=== PATIENT | female | born 1965 | race American Indian/Alaskan Native ===

== ENCOUNTER 2021-08-05 10:48 | Emergency (ER) | payer SELFPAY ==
[2021-08-05 12:02] VITALS: BP 129/86
--- NOTE | 2021-08-05 13:39 | Emergency Department Report ---
ED General Adult HPI - General Chief complaint: Neuro Symptoms/Deficit Stated complaint: RIGHTSIDE WEAKNESS/NUMBNESS Source: patient Mode of arrival: Ambulatory Limitations: Physical Limitation - History of Present Illness Initial comments: 56-year-old female presents to the ED complaining of a headache and weakness to her right side x2 months. Patient states that she has been seen by her primary care doctor who has ordered her a CT but she did not have insurance at the time. States that this and that weakness got worsen she was unable to pick up driver item. Patient is not exhibiting any weakness at present time. States that she is just concerned with intermittent weakness and was instructed by her primary care doctor to come to the ED for further evaluation. Patient is neurologically intact. She states that headache started 2 days ago currently patient states that her headache is a 0 out of 10. Patient is alert and oriented x3 .No acute distress noted. No ill appearance noted - Related Data Previous Rx's Medication Instructions Recorded Last Taken Type HYDROcodone/APAP 10-325 [Tiro 1 each PO Q4-6H PRN #20 tablet 10/06/14 Unknown Rx 10/325] cephALEXin [Keflex] 500 mg PO Q6H #28 capsule 10/06/14 Unknown Rx Acetaminophen/Codeine [Tylenol 1 tab PO Q6H PRN 3 Days #12 tab 08/05/21 Unknown Rx /Codeine # 3 tab] Ondansetron (Nf) [Zofran TAB] 8 mg PO Q8HR PRN 3 Days #12 tablet 08/05/21 Unknown Rx Allergies Allergy/AdvReac Type Severity Reaction Status Date / Time Sulfa (Sulfonamide Allergy Hives Verified 08/05/21 12:03 Antibiotics) aspirin AdvReac Unknown Unverified 08/05/21 12:03 Penicillins AdvReac Unknown Unverified 08/05/21 12:03 ED Review of Systems ROS: Stated complaint: RIGHTSIDE WEAKNESS/NUMBNESS Other details as noted in HPI Constitutional: denies: chills, fever Eyes: denies: eye pain, eye discharge, vision change ENT: denies: ear pain, throat pain Respiratory: denies: cough, shortness of breath, wheezing Cardiovascular: denies: chest pain, palpitations Endocrine: no symptoms reported Gastrointestinal: denies: abdominal pain, nausea, diarrhea Genitourinary: denies: urgency, dysuria, discharge Musculoskeletal: denies: back pain, joint swelling, arthralgia Skin: denies: rash, lesions Neurological: headache, weakness. denies: paresthesias Psychiatric: denies: anxiety, depression Hematological/Lymphatic: denies: easy bleeding, easy bruising ED Past Medical Hx - Past Medical History Previous Medical History?: Yes - Surgical History Additional Surgical History: neck surgery to C1, C2, & C3 - Social History Smoking Status: Never Smoker Substance Use Type: None - Medications Home Medications: Home Medications Medication Instructions Recorded Confirmed Last Taken Type HYDROcodone/APAP 10-325 [Tiro 1 each PO Q4-6H PRN #20 tablet 10/06/14 Unknown Rx 10/325] cephALEXin [Keflex] 500 mg PO Q6H #28 capsule 10/06/14 Unknown Rx Acetaminophen/Codeine [Tylenol 1 tab PO Q6H PRN 3 Days #12 tab 08/05/21 Unknown Rx /Codeine # 3 tab] Ondansetron (Nf) [Zofran TAB] 8 mg PO Q8HR PRN 3 Days #12 tablet 08/05/21 Unkno wn Rx ED Physical Exam - General Limitations: Physical Limitation General appearance: alert, in no apparent distress - Head Head exam: Present: atraumatic, normocephalic - Eye Eye exam: Present: normal appearance - ENT ENT exam: Present: mucous membranes moist - Neck Neck exam: Present: normal inspection - Respiratory Respiratory exam: Present: normal lung sounds bilaterally. Absent: respiratory distress - Cardiovascular Cardiovascular Exam: Present: regular rate, normal rhythm. Absent: systolic murmur, diastolic murmur, rubs, gallop - GI/Abdominal GI/Abdominal exam: Present: soft, normal bowel sounds - Extremities Exam Extremities exam: Present: normal inspection - Expanded Upper Extremity Exam Left General: Present: normal inspection Shoulder Exam: Present: normal inspection, full ROM Upper Arm exam: Present: normal inspection, full ROM Elbow exam: Present: normal inspection, full ROM Forearm Wrist exam: Present: normal inspection, full ROM Hand Wrist exam: Present: normal inspection, full ROM Neurosensory exam: Present: radial nerve intact, ulnar nerve intact, median nerve intact - Back Exam Back exam: Present: normal inspection - Neurological Exam Neurological exam: Present: alert, oriented X3 - Psychiatric Psychiatric exam: Present: normal affect, normal mood - Skin Skin exam: Present: warm, dry, intact, normal color. Absent: rash ED Course Vital Signs 08/05/21 11:58 Temperature 98.5 F Pulse Rate 82 Respiratory 18 Rate Blood Pressure 129/86 O2 Sat by Pulse 100 Oximetry ED Medical Decision Making - Radiology Data [facility] [address] [place] [address] Cat Scan Report Signed Patient: GUNJAN MONTERO MR#: Sampson [id number] : 1965 Acct:[id number] Age/Sex: 56 / F ADM Date: 08/05/21 Loc: ED Attending Dr: Ordering Physician: LUIS FERNANDO BERNABE Date of Service: 08/05/21 Procedure(s): CT lumbar spine wo con Accession Number(s): [id number] cc: LUIS FERNANDO BERNABE CT LUMBAR SPINE WITHOUT CONTRAST INDICATION / CLINICAL INFORMATION: fall 1 month ago weakness. TECHNIQUE: Axial CT images were obtained through the lumbar spine. Sagittal and coronal reformatted images were produced. All CT scans at this location are performed using CT dose reduction for ALARA by means of automated exposure control. COMPARISON: None available. FINDINGS: Transitional vertebral anatomy is noted. There is partial sacralization of the fifth lumbar vertebrae. The location of the L5-S1 intervertebral disc is defined at axial image series CT #2, oseas ge 314/421. TRAUMA:There is no indication of fracture or traumatic subluxation. ALIGNMENT: No significant abnormality of alignment in the lumbar region. VERTEBRAE: No significant abnormality. DISC SPACES: Near-complete loss of disc height and disc vacuum phenomena are noted at the lumbosacral junction. Mild loss of disc height is present at the L5-S1 level. Disc height is fairly well maintained elsewhere. DEGENERATIVE CHANGES: SPINAL CANAL: Central spinal canal is adequate in size throughout the lumbar region. SACRUM:No significant abnormality of the visualized sacrum.. Vacuum phenomena is present in the SI joints bilaterally. PARASPINAL SOFT TISSUES: No significant abnormality. IMPRESSION: 1. No indication of fracture or traumatic subluxation. 2. Advanced degenerative changes at the lumbosacral junction where near complete loss of disc height and disc vacuum phenomena are noted. Signer Name: Rodolfo Zapien MD Signed: 08/05/2021 4:16 PM Workstation Name: [id number] Transcribed By: Dictated By: Rodolfo Zapien MD Electronically Authenticated By: Rodolfo Zapien MD Signed Date/Time: 08/05/21 1616 DD/ 1611 TD/TT: [facility] [address] [place] [address] Cat Scan Report Signed Patient: GUNJAN MONTERO MR#: Sampson [id number] : 1965 Acct:[id number] Age/Sex: 56 / F ADM Date: 08/05/21 Loc: ED Attending Dr: Ordering Physician: LUIS FERNANDO BERNABE Date of Service: 08/05/21 Procedure(s): CT head/brain wo con Accession Number(s): [id number] cc: LUIS FERNANDO BERNABE NONENHANCED CT SCAN OF THE HEAD: INDICATION / CLINICAL INFORMATION: 56 years Female; weakness. TECHNIQUE: Routine CT head without contrast. All CT scans at this location are performed using CT dose reduction for ALARA by means of automated exposure control. COMPARISON: None. FINDINGS: BRAIN / INTRACRANIAL CONTENTS: No intracerebral hemorrhage or stroke mimics. No acute hemorrhage, mass effect, midline shift, hydrocephalus, or acute, large territorial infarct. No chronic infarct or focal atrophy. Normal brain volume and ventricular/sulcal size for age. No significant white matter abnormality. CRANIOCERVICAL JUNCTION: No significant abnormality. ORBITS: No significant abnormality of visualized orbits. SINUSES / MASTOIDS: No significant abnormality of the visualized paranasal sinuses or mastoid air cells. ADDITIONAL FINDINGS: None. IMPRESSION: Normal nonenhanced CT scan of the brain Signer Name: Ramila Toth MD Signed: 08/05/2021 1:44 PM Workstation Name: [id number] Transcribed By: Dictated By: Ramila Saavedra MD Electronically Authenticated By: Ramila Saavedra MD Signed Date/Time: 08/05/21 1344 DD/ 1340 TD/TT: - Medical Decision Making 56-year-old female presents to the ED complaining of a headache and weakness to her right side x2 months. Patient states that she has been seen by her primary care doctor who has ordered her a CT but she did not have insurance at the time. States that this Thursday and that weakness got worsen she was unable to pick up driver item. Patient is not exhibiting any weakness at present time. States that she is just concerned with intermittent weakness and was instructed by her primary care doctor to come to the ED for further evaluation. Patient is neurologically intact. She states that headache started 2 days ago currently patient states that her headache is a 0 out of 10. Patient is alert and oriented x3 .No acute distress noted. No ill appearance noted Critical care attestation.: If time is entered above; I have spent that time in minutes in the direct care of this critically ill patient, excluding procedure time. ED Disposition Clinical Impression: Headache Qualifiers: Headache type: unspecified Headache chronicity pattern: acute headache Intractability: not intractable Qualified Code(s): R51.9 - Headache, unspecified Disposition: 01 HOME / SELF CARE / HOMELESS Is pt being admited?: No Does the pt Need Aspirin: No Condition: Stable Instructions: General Headache Without Cause, [id number] Additional Instructions: Take medication as prescribed Return to ED for any worsening symptom Prescriptions: Acetaminophen/Codeine [Tylenol /Codeine # 3 tab] 1 tab PO Q6H PRN 3 Days #12 tab PRN Reason: Pain, Mild (1-3) Ondansetron (Nf) [Zofran TAB] 8 mg PO Q8HR PRN 3 Days #12 tablet PRN Reason: Pain, Mild (1-3) Referrals: LUZ ELENA SALOMON MD [Primary Care Provider] - 3-5 Days Forms: Work/School Release Form(ED)
--- NOTE | 2021-08-05 13:49 | Cat Scan Report ---
NONENHANCED CT SCAN OF THE HEAD: INDICATION / CLINICAL INFORMATION: 56 years Female; weakness. TECHNIQUE: Routine CT head without contrast. All CT scans at this location are performed using CT dos e reduction for ALARA by means of automated exposure control. COMPARISON: None. FINDINGS: BRAIN / INTRACRANIAL CONTENTS: No intracerebral hemorrhage or stroke mimics. No acute hemorrhage, mas s effect, midline shift, hydrocephalus, or acute, large territorial infarct. No chronic infarct or fo jona atrophy. Normal brain volume and ventricular/sulcal size for age. No significant white matter abn ormality. CRANIOCERVICAL JUNCTION: No significant abnormality. ORBITS: No significant abnormality of visualized orbits. SINUSES / MASTOIDS: No significant abnormality of the visualized paranasal sinuses or mastoid air david ls. ADDITIONAL FINDINGS: None. IMPRESSION: Normal nonenhanced CT scan of the brain Signer Name: Ramila Toth MD Signed: 08/05/2021 1:44 PM Workstation Name: [id number]
--- NOTE | 2021-08-05 16:20 | Cat Scan Report ---
CT LUMBAR SPINE WITHOUT CONTRAST INDICATION / CLINICAL INFORMATION: fall 1 month ago weakness. TECHNIQUE: Axial CT images were obtained through the lumbar spine. Sagittal and coronal reformatted images were produced. All CT scans at this location are performed using CT dose reduction for ALARA by means of a utomated exposure control. COMPARISON: None available. FINDINGS: Transitional vertebral anatomy is noted. There is partial sacralization of the fifth lumbar vertebrae . The location of the L5-S1 intervertebral disc is defined at axial image series CT #2, image 314/421 . TRAUMA:There is no indication of fracture or traumatic subluxation. ALIGNMENT: No significant abnormality of alignment in the lumbar region. VERTEBRAE: No significant abnormality. DISC SPACES: Near-complete loss of disc height and disc vacuum phenomena are noted at the lumbosacral junction. Mild loss of disc height is present at the L5-S1 level. Disc height is fairly well maintai briseida elsewhere. DEGENERATIVE CHANGES: SPINAL CANAL: Central spinal canal is adequate in size throughout the lumbar region. SACRUM:No significant abnormality of the visualized sacrum.. Vacuum phenomena is present in the SI ziggy ints bilaterally. PARASPINAL SOFT TISSUES: No significant abnormality. IMPRESSION: 1. No indication of fracture or traumatic subluxation. 2. Advanced degenerative changes at the lumbosacral junction where near complete loss of disc height and disc vacuum phenomena are noted. Signer Name: Rodolfo Zapien MD Signed: 08/05/2021 4:16 PM Workstation Name: [id number]
== END 2021-08-05 17:19 | disposition home or self-care (01) ==
LOC: ED 10:48
DX: R51.9 Headache, unspecified (principal); Z88.0 Allergy status to penicillin; Z88.2 Allergy status to sulfonamides; Z88.6 Allergy status to analgesic agent
CPT/HCPCS: 70450; 72131; 99283